=== PATIENT | male | born 1970 | race Caucasian/White ===

== ENCOUNTER 2023-10-08 20:14 | Inpatient (IN) | payer MEDICARE, MEDICAID, SELFPAY ==
--- NOTE | ~2023-10-08 | XR_ITS ---
EXAMINATION: XR chest 1V portable DATE: 10/09/2023 07:05 INDICATION: Cardiac arrest. TECHNIQUE: A single frontal view of the chest was obtained. COMPARISON: Chest single view 10/08/2023 FINDINGS: The patient is rotated to his left. There is a diffuse interstitial pattern in the lungs, c onsistent with mild pulmonary edema. No pleural effusion or pneumothorax. Cardiomegaly is noted. IMPRESSION: 1. Mild pulmonary edema. 2. Cardiomegaly. Reviewed, dictated and finalized at location E.
--- NOTE | ~2023-10-08 | CT_ITS ---
EXAMINATION: CT abdomen pelvis wo con DATE: 10/08/2023 21:37 INDICATION: Pelvic pain, scrotal pain history of abscess TECHNIQUE: Computed tomography (CT) of the abdomen and pelvis was performed without intravenous contr ast. Automated exposure control and iterative reconstruction technique were employed. The dose-length product was 2292.29 mGy-cm. COMPARISON: 10/20/2018. FINDINGS: Lower thorax: Patchy areas of groundglass opacity. Cardiomegaly. Aortic mitral and coronary artery ca lcifications. Liver: Nodular liver border. Biliary/Gallbladder: Gallbladder is absent. No bile duct dilation. Pancreas: Mild atrophy. Spleen: Normal. Adrenals:Indeterminate density cm right adrenal lesion. Kidneys: Bilateral renal atrophy. Bilateral simple cysts. GI tract: No small or large bowel dilation. Normal appendix. Mesentery/Peritoneum: Large volume ascites Retroperitoneum: No mass. Atherosclerotic abdominal aortic and/or arterial calcifications. Pelvis: Empty urinary bladder. Scrotal edema. Focal area of gas bubbles projecting over the posterior scrotal wall. Soft Tissues: Moderate body wall edema. Large bilateral inguinal lymph nodes. Bones: No acute osseous finding. IMPRESSION: Pulmonary opacities likely represent mild edema. Pneumonitis/atypical infection not excluded. Cirrhosis. Large volume ascites. Severe body wall edema, including scrotal edema. Focal area of gas within the posterior wall of the scrotum may represent gas trapped within skin fold s, soft tissue ulceration, or abscess. Correlate clinically. Evaluation for abscess is limited withou t contrast. Marked bilateral inguinal lymphadenopathy. Reviewed, dictated and finalized at location K. IMPRESSION: Pulmonary opacities likely represent mild edema. Pneumonitis/atypical infection not excluded. Cirrhosis. Large volume ascites. Severe body wall edema, including scrotal edema. Focal area of gas within the posterior wall of the scrotum may represent gas tr apped within skin folds, soft tissue ulceration, or abscess. Correlate clinical ly. Evaluation for abscess is limited without contrast. Marked bilateral inguinal lymphadenopathy.
--- NOTE | ~2023-10-08 | XR_ITS ---
EXAMINATION: XR chest 1V portable Exam Date/Time: 10/08/2023 20:37 CDT HISTORY: weakness Comparison: 04/24/2018. RESULT: Lines, tubes, and devices: None. Lungs and pleura: Moderate diffuse interstitial opacities. Cardiomediastinal silhouette: Stable. Other: No acute osseous or upper abdominal finding. IMPRESSION: Moderate interstitial edema. Reviewed, dictated and finalized at location K.
[2023-10-08 20:16] VITALS: BP 78/54; PULSE 86; RESP 16; TEMP 36.4; O2SAT 96
--- NOTE | 2023-10-08 20:26 | ECG_ITS ---
SEE SCANNED COPY FOR CONFIRMED REPORT MTDD
[2023-10-08] MEDS: SODIUM CHLORIDE 0.9% IV 1,000 ML 999 ML IV CONT (20:52)
[2023-10-08 20:58] LABS: Basophils Percent Auto 0.2 % (0.2-1.2); Eosinophils Percent Auto 0.3 % (0-4.4); Hematocrit 33.6 % (42.0-52.0); Hemoglobin 10.5 g/dL (14.0-18.0); Immature Granulocyte Absolute 0.05 K/mm3 (0.00-0.031); Immature Granulocyte Percent A 0.4 % (0-0.5); Immature Platelet Fraction Pct 7.5 % (0.9-11.2); Lymphocytes Absolute Auto 0.57 K/mm3 (0.9-3.2); Lymphocytes Percent Auto 4.6 % (18.3-44.2); Mean Corpuscular HGB Conc 31.3 g/dl (32-36); Mean Corpuscular Hemoglobin 29.7 pg (26-34); Mean Corpuscular Volume 95.2 fl (80-100); Monocytes Absolute Auto 0.8 K/mm3 (0.1-0.6); Monocytes Percent Auto 6.2 % (2.6-8.5); Neutrophils Absolute Auto 10.9 K/mm3 (1.3-6.7); Neutrophils Percent Auto 88.3 % (45.5-73.1); Platelet Count Result 91 k/mm3 (150-375); Red Blood Count 3.53 M/mm3 (4.6-6.20); Red Cell Distribution Width 15.9 % (11.5-14.5); White Blood Count 12.3 K/mm3 (4.5-10.0)
[2023-10-08 21:08] LABS: Lactic Acid Reflex 1.6 mmol/L (0.7-2.0)
[2023-10-08 21:09] LABS: Alanine Aminotransferase 14 U/L (6-50); Albumin Level 3.7 g/dL (3.5-5.1); Alkaline Phosphatase 93 U/L (38-126); Anion Gap 8 mmol/L (4-12); Aspartate Amino Transferase 25 U/L (17-59); Bilirubin,Total 1.2 mg/dL (0.2-1.3); Blood Urea Nitrogen 44 mg/dL (9-20); Calcium 8.5 mg/dL (8.4-10.2); Carbon Dioxide 29 mmol/L (22-30); Chloride 97 mmol/L (98-107); Estimated CRCL calculation 16 ml/min; Estimated Glomerular Filt Rate 8; Glucose 158 mg/dL (65-110); Potassium 4.3 mmol/L (3.4-5.0); Sodium 134 mmol/L (137-145)
[2023-10-08 21:10] LABS: Anisocytosis 1+; Ovalocytes 1+; Platelet Estimate Decreased (Adequate); Schistocytes None Seen
--- NOTE | 2023-10-08 21:25 | PC.NURSE ---
Patient requests being on a bed mcbride due to diarrhea. This RN educated him that he should not stay on a bed mcbride for extended periods of times due to possible pressure injury. Patient states he can pull himself off the mcbride when it gets uncomfortable. Call light within reach.
[2023-10-08 21:39] VITALS: BP 80/58; PULSE 80; RESP 18; O2SAT 98
[2023-10-08 21:45] LABS: Procalcitonin 0.7 ng/mL
[2023-10-08 23:10] VITALS: BP 90/66; PULSE 78; RESP 17; O2SAT 97
--- NOTE | 2023-10-08 23:24 | ED.GENADULT ---
HPI - General Adult General Chief complaint: Weakness Stated complaint: BLEEDING IN DEPENDS Time Seen by Provider: 10/08/23 20:31 History of Present Illness HPI narrative: Patient is a 53-year-old gentleman presents emergency department with chief complaint of infection of the scrotum patient reports he has history of diabetes had amputations of his lower extremities and also has history of congestive heart failure and wears a LifeVest patient reports he has been admitted at [facility] has had debridement before the scrotum after he has developed abscesses. The patient reports that he feels weaker than normal and reports that he normally goes to dialysis Sunday Related Data Allergies Allergy/AdvReac Type Severity Reaction Status Date / Time vancomycin Allergy Unknown Verified 04/24/18 13:37 Review of Systems Review of Systems: A 10 system review of systems was completed on the patient and is negative except for what is stated in the HPI. Nursing and ancillary documentation was reviewed. Exam Narrative: GENERAL: Well-appearing, well-nourished, and in no acute distress. HEAD: Normocephalic, atraumatic. EYES: PERRLA and EOMI. ENT: Nares clear, no rhinorrhea or epistaxis. Mucous membranes moist. NECK: Supple. CHEST: Clear to auscultation. No respiratory distress. HEART: Regular rate and rhythm. No murmur heard. Normal peripheral pulses. ABDOMEN: Soft, nontender, nondistended, normal active bowel sounds. : Scrotum is swollen there is area of ulceration in the posterior aspect of the scrotum that has bloody type drainage. No crepitance no necrotic tissue EXTREMITIES: Normal range of motion bilateral below-knee amputations. 4+ edema. SKIN: Warm, dry, no rash. NEURO: No focal deficits. Alert and oriented x3. PSYCH: Normal mood and affect. Course Vital Signs Vital signs: Vital Signs Temperature 36.4 C 10/08/23 20:16 Pulse Rate 86 10/08/23 20:16 Respiratory Rate 16 10/08/23 20:16 Blood Pressure 78/54 L 10/08/23 20:16 Pulse Oximetry 96 10/08/23 20:16 Oxygen Delivery Room Air 10/08/23 20:16 Temperature 36.4 C 10/08/23 20:16 Pulse Rate 78 10/08/23 23:10 Respiratory Rate 17 10/08/23 23:10 Blood Pressure 90/66 L 10/08/23 23:10 Pulse Oximetry 97 10/08/23 23:10 Oxygen Delivery Room Air 10/08/23 20:16 Medical Decision Making [facility] Narrative Medical decision making narrative: Differential diagnosis includes Odilon's gangrene, necrotizing fasciitis, abscess, cellulitis Laboratory studies were obtained showed a white count of 12.3 procalcitonin 0.[address] scan of the abdomen pelvis including the scrotum showed evidence of anasarca and also showed an area of possible abscess in the scrotum. There is no signs of necrotizing fasciitis The case was discussed with Urology who will consult on the patient the patient will be started on IV antibiotics in the emergency department and the case was discussed with the hospitalist for admission Vital Signs Vital Signs: Vital Signs Temperature 36.4 C 10/08/23 20:16 Pulse Rate 86 10/08/23 20:16 Respiratory Rate 16 10/08/23 20:16 Blood Pressure 78/54 L 10/08/23 20:16 Pulse Oximetry 96 10/08/23 20:16 Oxygen Delivery Room Air 10/08/23 20:16 Temperature 36.4 C 10/08/23 20:16 Pulse Rate 78 10/08/23 23:10 Respiratory Rate 17 10/08/23 23:10 Blood Pressure 90/66 L 10/08/23 23:10 Pulse Oximetry 97 10/08/23 23:10 Oxygen Delivery Room Air 10/08/23 20:16 Lab Data 10/08/23 20:50 10/08/23 20:50 Labs: Lab Results 10/08/23 Range/Units 20:50 WBC 12.3 H (4.5-10.0) K/mm3 RBC 3.53 L (4.6-6.20) M/mm3 Hgb 10.5 L (14.0-18.0) g/dL Hct 33.6 L (42.0-52.0) % MCV 95.2 (80-100) fl MCH 29.7 (26-34) pg MCHC 31.3 L (32-36) g/dl RDW 15.9 H (11.5-14.5) % Plt Count 91 L (150-375) k/mm3 MPV 12.0 H (7.4-10.4)
[2023-10-08] MEDS: CEFEPIME 2 GM/NS 50 ML 2 GM/50 ML BAG IVPB (23:41)
[2023-10-08] MEDS: metroNIDAZOLE 500 MG/ISO 100ML 500 MG/100 ML BAG 100 MG IVPB (23:58)
--- NOTE | 2023-10-08 23:58 | PM.IMHP ---
H&P: HPI History of Present Illness Date/Time: 10/08/23 23:58 Chief Complaint: Scrotal abscess Narrative: This is a 53-year-old male with past medical history significant for end-stage renal disease on hemodialysis, insulin-dependent diabetes mellitus, bilateral [id number] amputations, obesity. patient presents to the emergency room due to scrotal tenderness, discharge. patient with worsening diarrhea as well having several bowel movements a day of watery diarrhea, incontinent of stool. Denies any fevers, rigors, chills. Noted the finding in his scrotum 3 days ago noticed some brown discharge from it and decided to come to the emergency room. EXAMINATION:? XR chest 1V portable Exam Date/Time:? 10/08/2023 20:37 CDT HISTORY: weakness ? Comparison:? 04/24/2018. RESULT: Lines, tubes, and devices:? None. Lungs and pleura:? Moderate diffuse interstitial opacities. Cardiomediastinal silhouette:? Stable. Other:? No acute osseous or upper abdominal finding. ? IMPRESSION: Moderate interstitial edema. EXAMINATION: CT abdomen pelvis wo con DATE: 10/08/2023 21:37 INDICATION: Pelvic pain, scrotal pain history of abscess TECHNIQUE: Computed tomography (CT) of the abdomen and pelvis was performed without intravenous contrast. Automated exposure control and iterative reconstruction technique were employed. The dose-length product was 2292.29 mGy-cm. COMPARISON: 10/20/2018. FINDINGS: Lower thorax: Patchy areas of groundglass opacity. Cardiomegaly. Aortic mitral and coronary artery calcifications. Liver: Nodular liver border.? Biliary/Gallbladder: Gallbladder is absent. No bile duct dilation. Pancreas: Mild atrophy. Spleen: Normal. Adrenals:Indeterminate density cm right adrenal lesion. Kidneys: Bilateral renal atrophy. Bilateral simple cysts. GI tract: No small or large bowel dilation. Normal appendix. Mesentery/Peritoneum: Large volume ascites Retroperitoneum: No mass. Atherosclerotic abdominal aortic and/or arterial calcifications. Pelvis: Empty urinary bladder. Scrotal edema. Focal area of gas bubbles projecting over the posterior scrotal wall. Soft Tissues: Moderate body wall edema. Large bilateral inguinal lymph nodes. Bones:? No acute osseous finding. IMPRESSION: Pulmonary opacities likely represent mild edema. Pneumonitis/atypical infection not excluded. Cirrhosis. Large volume ascites. Severe body wall edema, including scrotal edema. Focal area of gas within the posterior wall of the scrotum may represent gas trapped within skin folds, soft tissue ulceration, or abscess. Correlate clinically. Evaluation for abscess is limited without contrast. Marked bilateral inguinal lymphadenopathy. Review of Systems Review of Systems: scrotal pain, discharge, for 3 days, Worsening diarrhea Constitutional: Constitutional: Denies chills, Denies fever(s), Denies malaise and Denies night sweats Eyes: Eyes: Denies change in vision ENT: Denies dysphagia and Denies odynophagia Cardiovascular: Cardiovascular: Denies chest pain, Denies radiating jaw, neck or arm pain, Denies palpitations and Denies dyspnea Respiratory: Respiratory: Denies chest congestion and Denies cough Gastrointestinal: Gastrointestinal: Reports fecal incontinence, Reports diarrhea, Denies nausea and Denies vomiting Genitourinary: Genitourinary: Denies dysuria Musculoskeletal: Musculoskeletal: Reports other ( Bilateral BKA) Integumentary/Breasts: Skin/Breast: Reports erythema, Reports skin swelling ( scrotal area) and Reports skin ulcer Neurologic: Denies focal weakness and Denies Sensory deficit (Neuro) Psychiatric: Psychiatric: Reports no additional psychiatric complaints and Reports as per HPI Endocrine: Endocrine: Denies cold intolerance, Denies fatigue, Denies flushing, Denies heat intolerance, Denies polyphagia, Denies polydipsia, Denies polyuria and Denies palpitations Hematologic/Lymphatic: Hematologic/Lymphatic: Reports
[2023-10-09] VITALS (13 sets, daily range): BP systolic 89–116; BP diastolic 59–79; PULSE 75–98; RESP 12–22; TEMP 36.2–36.8; O2SAT 96–100
--- NOTE | 2023-10-09 | ECHO_ITS ---
Patient Info Name: Codey Veloz Age: 53 years : 1970 Gender: Male Ht: 72 in Wt: 286 lbs BSA: 2.62 m2 HR: 98 bpm BP: 114 / 65 mmHg Heart Rhythm: Sinus Rhythm Technical Quality: Fair Exam Date: 10/09/2023 9:47 AM Exam Location: Echo Lab Patient Status: Inpatient Admit Date: 10/09/2023 Staff Ordering Physician: Nneka Cardona MD Hogshead Cooper: Hoa Isidro RDCS Attending Provider: Nneka Cardona MD Referring Physician: Dulce HAIDER; Exam Type: CA echo dop color flow w con Study Info Indications - post cardiac arrest Complete two-dimensional, color flow and Doppler transthoracic echocardiogram is performed with contrast to opacify the left ventricle and to improve the deliniation of the left ventricle endocardial borders. Contrast/Agitated Saline Contrast/Ag. Saline: Definity Amount: 2.00 ml Administered By: Hoa Isidro RDCS Existing IV Access: Yes IV Access Condition: patent with no signs of infiltration Summary 1. Left ventricular chamber dimension is normal. 2. Left ventricular systolic function is moderately reduced, estimated at 30-35%. 3. There is mildly increased left ventricular wall thickness. 4. Right ventricular chamber dimension is normal. 5. Right ventricular systolic function is reduced. 6. Left atrial chamber dimension is moderately enlarged. 7. Right atrial chamber dimension is mildly enlarged. 8. There is severe aortic valve calcification. 9. There is severe aortic valve stenosis with a peak velocity of 226.03 cm/s, mean gradient of 14 mmHg, and aortic valve area of 0.85 cm2. 10. The mitral valve annulus is severely calcified. 11. There is mild mitral valve regurgitation. 12. There is mild tricuspid valve regurgitation. 13. There is mild pulmonic regurgitation. Left Ventricle Left ventricular chamber dimension is normal. Left ventricular systolic function is moderately reduced, estimated at 30-35%. There is mildly increased left ventricular wall thickness. Right Ventricle Right ventricular chamber dimension is normal. Right ventricular systolic function is reduced. Left Atria Left atrial chamber dimension is moderately enlarged. Right Atria Right atrial chamber dimension is mildly enlarged. Atrial Septum Intact interatrial septum visualized by color flow imaging. Aortic Valve The aortic valve is trileaflet. There is severe aortic valve stenosis with a peak velocity of 226.03 cm/s, mean gradient of 14 mmHg, and aortic valve area of 0.85 cm2. There is no aortic valve regurgitation. There is severe aortic valve calcification. Pulmonic Valve The pulmonic valve is not well visualized. There is mild pulmonic regurgitation. Mitral Valve There is mild mitral valve regurgitation. The mitral valve annulus is severely calcified. Tricuspid Valve There is mild tricuspid valve regurgitation. Pericardium/Pleural There is no pericardial effusion. Inferior Vena Cava Normal inferior vena cava with >50% collapse upon inspiration consistent with normal right atrial pressure, 3 mmHg. Aorta The aortic root size at the sinus of Valsalva is normal. Left Ventricular Outflow Tract Name Value Normal LVOT 2D LVOT Diameter 2.07 cm LVOT Doppler
[2023-10-09] MEDS: LINEZOLID 600 MG/300 ML 600 MG/300 ML SOLN 300 MG IVPB ×2 (01:01→09:09)
--- NOTE | 2023-10-09 01:30 | PC.NURSE ---
This patient, Codey Veloz, was admitted to IMU Room 205-01. Patient/family oriented to hospital policies and general routines including ID bracelet, bed and alarms, visiting hours, pain management, procedures, bathroom and other care routines, personal items, smoking policy, room service/diet, and visiting hours. Information on how to activate the Rapid Response Team has been discussed. Patient/Family are encouraged to report perceived risks to care and to ask questions if they do not understand what they are told or what they should do.
[2023-10-09] MEDS: metroNIDAZOLE 500 MG/ISO 100ML 500 MG/100 ML BAG 100 MG IVPB ×2 (05:56→13:37)
--- NOTE | 2023-10-09 06:50 | PC.NURSE ---
Patient's firearms specialist alarmed with asystole. BETSEY Kwong entered room to check on patient. Found patient unresponsive and without a pulse. CPR started and code blue initiated. Patient moaning, no pulse palpated. Patient stated ouch and femoral pulse palpated. CPR stopped and patient drowsy but able to respond and answer questions. Dr. Cardona in the room to assess patient.
[2023-10-09 07:37] LABS: Lactic Acid Reflex 1.6 mmol/L (0.7-2.0)
[2023-10-09 07:57] LABS: Glucose Point of Care 125 mg/dl (65-105)
[2023-10-09 08:06] LABS: Troponin I 0.055 ng/mL (0.000-0.034)
--- NOTE | 2023-10-09 08:10 | PC.NURSE ---
This RN notified the day shift hospitalist, Dr. Mcbride about the patient coding at 0647 this morning.
[2023-10-09 08:11] LABS: Anion Gap 11 mmol/L (4-12); Blood Urea Nitrogen 48 mg/dL (9-20); Calcium 8.7 mg/dL (8.4-10.2); Carbon Dioxide 24 mmol/L (22-30); Chloride 99 mmol/L (98-107); Estimated CRCL calculation 15 ml/min; Estimated Glomerular Filt Rate 8; Glucose 143 mg/dL (65-110); Magnesium 2.2 mg/dL (1.6-2.3); Potassium 4.1 mmol/L (3.4-5.0); Sodium 134 mmol/L (137-145)
[2023-10-09] MEDS: ASPIRIN 81 MG CHEWABLE TABLET PO (09:09)
[2023-10-09] MEDS: CLOPIDOGREL BISULFATE 75 MG TABLET PO (09:09)
--- NOTE | 2023-10-09 09:37 | PC.NURSE ---
Pt. received from 205-. Sending RN Nguyen at bedside and answered all questions.
--- NOTE | 2023-10-09 09:37 | PC.NURSE ---
This patient, Codey Veloz, was transferred to [ICU room 7] on 10/09/23 at 0938. Personal belongings sent with patient. Report given to [BETSEY Gabriel ]. Appropriate documentation sent with patient.
--- NOTE | 2023-10-09 09:56 | WPDURCON ---
Urology Consult Note HPI Date Seen: 10/09/23 Requesting Physician: Nneka Cardona MD Primary Care Provider: aLureano Snyder, Consult Narrative Narrative: Codey Veloz is a 53 year old male [facility] Family History Family History (Updated 10/09/23 @ 06:05 by Keke Alvarado RN) Other Unknown family medical history Social History Social History Smoking status: Former smoker Tobacco type: cigarettes Alcohol intake: never Substance use: never Substance use type: does not use Do You Feel Safe in your Home?: Yes Lack of Transportation: No Lack of Food: Never True Current Housing: Decline to Answer Concerned About Future Housing: Decline to Answer Difficulty Paying Gas/Electric Bills: Decline to Answer Difficulty Paying for Meds: Decline to Answer Currently Unemployed: Decline to Answer Education: Decline to Answer Difficulty w/ Childcare or Family Care: Decline to Answer Spiritual care concerns: No Meds Home Medications and Allergies Home Medications Medication Instructions Recorded Confirmed Type aspirin 81 mg chewable tablet 81 mg PO DAILY 10/09/23 10/09/23 History bisacodyl 10 mg rectal suppository 10 mg RECTAL DAILY PRN Constipation 10/09/23 10/09/23 History clopidogrel 75 mg tablet 75 mg PO DAILY 10/09/23 10/09/23 History diphenoxylate-atropine 2.5 1 tablet PO Q6H PRN Diarrhea 10/09/23 10/09/23 History mg-0.025 mg tablet hydrocodone 10 mg-acetaminophen 1 tablet PO Q8H PRN Pain 10/09/23 10/09/23 History 325 mg tablet insulin lispro 100 unit/mL 1 sliding scale dose subcut AC 10/09/23 10/09/23 History subcutaneous pen lidocaine-prilocaine 2.5 %-2.5 % 1 applic topical MOWEFR 10/09/23 10/09/23 History topical cream loperamide 2 mg capsule 2 mg PO PRN PRN Diarrhea 10/09/23 10/09/23 History magnesium citrate (Citroma oral 300 ml PO DAILY PRN Constipation 10/09/23 10/09/23 History solution) magnesium hydroxide 400 mg/5 mL 30 ml PO HS PRN Constipation 10/09/23 10/09/23 History oral suspension (Milk of Magnesia) midodrine 5 mg tablet 15 mg PO TID Hypotension 10/09/23 10/09/23 History sodium phosphates 19 gram-7 118 ml RECTAL DIRECTED PRN 10/09/23 10/09/23 History gram/118 mL enema (Fleet Enema) Constipation trazodone 50 mg tablet 50 mg PO HS 10/09/23 10/09/23 History Allergies Allergy/AdvReac Type Severity Reaction Status Date / Time vancomycin Allergy Unknown Itching Verified 10/09/23 01:47 codeine Allergy Unknown Verified 10/09/23 01:59 Vital Signs Vital Signs - 24 hr 10/08/23 20:16 10/08/23 21:39 10/08/23 23:10 Temperature 97.6 F Pulse Rate 86 80 78 Respiratory Rate 16 18 17 Blood Pressure 78/54 L 80/58 L 90/66 L Pulse Oximetry 96 98 97 Oxygen Delivery Room Air Oxygen Flow Rate Fraction of Inspired Oxygen 10/09/23 01:52 10/09/23 01:45 10/09/23 02:00 Temperature 97.6 F Pulse Rate 81 78 Respiratory Rate 17 Blood Pressure 91/65 L Pulse Oximetry 97 Oxygen Delivery Room Air Oxygen Flow Rate Fraction of Inspired Oxygen 10/09/23 05:15 10/09/23 04:00 10/09/23 06:00 Temperature 97.2 F L Pulse Rate 82 78 79 Respiratory Rate 17 Blood Pressure 91/60 L Pulse Oximetry 97 Oxygen Delivery Oxygen Flow Rate Fraction of Inspired Oxygen 10/09/23 04:00 10/09/23 06:45 10/09/23 07:28 Temperature 97.7 F Pulse Rate 98 Respiratory Rate 17 Blood Pressure 114/65 Pulse Oximetry 99 100 Oxygen Delivery Room Air Nasal Cannula Oxygen Flow Rate 2 Fraction of Inspired Oxygen 28 10/09/23 07:58 10/09/23 08:00 Temperature 98.2 F Pulse Rate 84 Respiratory Rate 16 Blood Pressure 93/59 L Pulse Oximetry 100 Oxygen Delivery Room Air Oxygen Flow Rate Fraction of Inspired Oxygen Results Labs 10/08/23 20:50 10/09/23 07:13 Labs: Short CBC 10/08/23 Range/Units
[2023-10-09] MEDS: PSYLLIUM POWDER PACKET 1 PACKET PO (10:00)
[2023-10-09] MEDS: PERFLUTREN LIPID MICROSPHERES 1.5 ML VIAL DILUTED TO 10 ML TOTAL VOLUME IV PUSH (10:10)
[2023-10-09] MEDS: MIDODRINE HCL 2.5 MG TABLET 15 MG PO ×3 (10:25→17:35)
--- NOTE | 2023-10-09 10:43 | WPDCNINT ---
Assessment and Plan Assessment and plan (1) Coronary artery disease: Code(s): I25.10 - Atherosclerotic heart disease of [place] coronary artery without angina pectoris Status: Acute Assessment and Plan: Patient has ischemic cardiomyopathy with EF 30%. He has multivessel coronary disease status post stenting of his RCA. He also has severe aortic stenosis and is being evaluated for TAVR Continue aspirin and Plavix at this time Patient will be transferred to [facility] where he receives his cardiology care for further evaluation management along with evaluation for AICD and pacemaker placement (2) Severe aortic stenosis: Code(s): I35.0 - Nonrheumatic aortic (valve) stenosis Status: Acute Assessment and Plan: See above (3) Sinus arrest: Code(s): I45.5 - Other specified heart block Status: Acute Assessment and Plan: Patient had a 7 seconds sinus pause agree CPR. His electrolytes were acceptable and normal range and he is not on any beta-rene or calcium channel rene Patient was being evaluated for AICD placement at his last hospitalization and was discharged on LifeVest. He appears that he needs both pacemaker and AICD at this time. 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 Correlate clinically. Evaluation for abscess is limited without contrast. Exam as above Urology has been consulted and will see the patient Patient is going to be transferred to [facility] from Cardiology standpoint Continue Zyvox, cefepime and Flagyl (6) Anasarca: Code(s): R60.1 - Generalized edema Status: Acute Assessment and Plan: Patient is overall volume overloaded secondary to congestive heart failure and end-stage renal disease He will benefit from paracentesis since it is hard to remove fluid with dialysis considering his chronically low blood pressure but since patient is going to be transferred I will defer paracentesis to the accepting hospital (7) ESRD on dialysis: Code(s): N18.6 - End stage renal disease; Z99.2 - Dependence on renal dialysis Status: Acute Assessment and Plan: Nephrology has been consulted for dialysis Electrolytes are in acceptable range (8) Heart failure with reduced ejection fraction: Code(s): I50.20 - Unspecified systolic (congestive) heart failure Status: Acute Assessment and Plan: See above (9) Thrombocytopenia: Code(s): D69.6 - Thrombocytopenia, unspecified Status: Acute Assessment and Plan: Presented with is platelet count 91. Baseline unknown. Could be secondary to sepsis and cirrhosis Monitor at this time Plan DVT prophylaxis -Lovenox SUP - NA Nutrition -diabetic diet Code Status - Full Code Case discussed with Cardiology Dr. Berry and Urology. Dr. Berry recommends transfer to [facility] for AICD and permanent pacemaker placement. She spoke to Dr. Serrano who is patient's rn staff and will accept the patient as a cruise consultant to [facility]. I have spoken to transfer line and Dr. Ortega who is the manager massage department . He will accept patient and patient be transferred once bed is will. Patient is aware of transfer process and is agreeable to transfer. He verbalized understandings of risks and benefits of transferring to another facility. Total Critical
--- NOTE | 2023-10-09 10:45 | P.CONNP_ITS ---
Assessment and Plan Assessment and plan (1) End stage renal disease: Code(s): N18.6 - End stage renal disease Status: Chronic Assessment and Plan: * HD tomorrow * continue Sun/Sun/Sunday schedule while hospitalized * follow electrolytes, volume status, and clearance * consider extrea session of DUF/HD during hospitalization due to volume overload... (2) Sinus arrest: Code(s): I45.5 - Other specified heart block Status: Acute Assessment and Plan: * noted 7 second sinus pause by telmetry * s/p CPR with ROSC quite rapidly * likely needs pacemaker placement * Cardiology consulted (3) Ischemic cardiomyopathy: Code(s): I25.5 - Ischemic cardiomyopathy Status: Chronic Assessment and Plan: * as noted by previous evaluation at [facility] * noted EF of 30% * known multivessel coronary disease status post stenting of his RCA * this is further complicated by his severe aortic stenosis (being evaluated for TAVR) * was being considered for AICD placement * LifeVest in place * Cardiology consulted (4) Cellulitis of scrotum: Code(s): N49.2 - Inflammatory disorders of scrotum Status: Acute Assessment and Plan: * imaging noted on admission * 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 Thank you for allowing me to participate in the care of this patient. History of Present Illness Reason for Consult Consult date: 10/09/23 Reason for consult: end stage renal disease Chief Complaint Chief complaint: Scrotal Abscess/Cellulitis History of Present Illness Narrative: The patient is a 53-year-old Caucasina male with past medical history as outlined below who presented to the [facility] emergency room due to scrotal tenderness and discharge. He reports the symptoms have been going on for last few days if not longer and has been associated with issues/ problems with diarrhea. He reports he was recently hospitalized at [facility] for cardiac issues but no reported urological issues or symptoms that he has been experiencing for the last few days. Given these symptoms, he presented to the ER for further assessment. Workup and evaluation in the emergency room demonstrated the patient to be hemodynamically stable and no acute distress. Routine blood test demonstrated labs consistent with his known history of end-stage renal disease. Given the history as mentioned, he underwent a CT scan of the chest/abdomen/pelvis which demonstrated pulmonary opacities likely representing edema, liver cirrhosis, large volume ascites, severe body wall edema including scrotal edema, focal areas of gas within the posterior wall of the scrotum which may represent gas trapped within skin. , soft tissue ulceration, or abscess and bilateral inguinal lymphadenopathy. Given these findings, after appropriate cultures were obtained, he was start
--- NOTE | 2023-10-09 10:45 | PM.CNNEP ---
Assessment and Plan Assessment and plan (1) End stage renal disease: Code(s): N18.6 - End stage renal disease Status: Chronic Assessment and Plan: HD tomorrow continue Sun/Sun/Sunday schedule while hospitalized follow electrolytes, volume status, and clearance consider extrea session of DUF/HD during hospitalization due to volume overload... (2) Sinus arrest: Code(s): I45.5 - Other specified heart block Status: Acute Assessment and Plan: noted 7 second sinus pause by telmetry s/p CPR with ROSC quite rapidly likely needs pacemaker placement Cardiology consulted (3) Ischemic cardiomyopathy: Code(s): I25.5 - Ischemic cardiomyopathy Status: Chronic Assessment and Plan: as noted by previous evaluation at [facility] noted EF of 30% known multivessel coronary disease status post stenting of his RCA this is further complicated by his severe aortic stenosis (being evaluated for TAVR) was being considered for AICD placement LifeVest in place Cardiology consulted (4) Cellulitis of scrotum: Code(s): N49.2 - Inflammatory disorders of scrotum Status: Acute Assessment and Plan: imaging noted on admission 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[facility] many years ago Urology consulted on IV antibiotics (5) Anasarca: Code(s): R60.1 - Generalized edema Status: Acute Assessment and Plan: as noted by physical exam and imaging studies consider extra dialysis/ultrafiltration for further fluid removal consider paracentesis follow volume status (6) Insulin dependent diabetes mellitus: Status: Chronic Assessment and Plan: follow accu-cheks glycemic control per hospitalist/nurse practitioner home assessments I will continue follow the patient with you while he remains hospitalized and make further recommendations as deemed necessary. Thank you for allowing me to participate in the care of this patient. History of Present Illness Reason for Consult Consult date: 10/09/23 Reason for consult: end stage renal disease Chief Complaint Chief complaint: Scrotal Abscess/Cellulitis History of Present Illness Narrative: The patient is a 53-year-old Caucasina male with past medical history as outlined below who presented to the [facility] emergency room due to scrotal tenderness and discharge. He reports the symptoms have been going on for last few days if not longer and has been associated with issues/ problems with diarrhea. He reports he was recently hospitalized at [facility] for cardiac issues but no reported urological issues or symptoms that he has been experiencing for the last few days. Given these symptoms, he presented to the ER for further assessment. Workup and evaluation in the emergency room demonstrated the patient to be hemodynamically stable and no acute distress. Routine blood test demonstrated labs consistent with his known history of end-stage renal disease. Given the history as mentioned, he underwent a CT scan of the chest/abdomen/pelvis which demonstrated pulmonary opacities likely representing edema, liver cirrhosis, large volume ascites, severe body wall edema including scrotal edema, focal areas of gas within the posterior wall of the scrotum which may represent gas trapped within skin. , soft tissue ulceration, or abscess and bilateral inguinal lymphadenopathy. Given these findings, after appropriate cultures were obtained, he was started on IV antibiotics with Urology consultation and was subsequently admitted to the hospital for further evaluation and therapy Upon further discussion with the patient, he reports a history of Odilon's gangrene many years ago that was treated [facility]. At that time, he require surgical intervention and skin grafting. During his recent hospitalization [facility] he al
--- NOTE | 2023-10-09 11:00 | PM.IMPN ---
Progress Note: A&P Assessment and Plan (1) Cellulitis of scrotum: Code(s): N49.2 - Inflammatory disorders of scrotum Status: Acute (2) ESRD on dialysis: Code(s): N18.6 - End stage renal disease; Z99.2 - Dependence on renal dialysis Status: Acute (3) Below-knee amputation of both lower extremities: Code(s): S88.111A - Complete traumatic amputation at level between knee and ankle, right lower leg, initial encounter; S88.112A - Complete traumatic amputation at level between knee and ankle, left lower leg, initial encounter Status: Acute (4) Chronic diarrhea: Code(s): K52.9 - Noninfective gastroenteritis and colitis, unspecified Status: Acute (5) Insulin dependent diabetes mellitus: Status: Acute (6) Sinus arrest: Code(s): I45.5 - Other specified heart block Status: Acute (7) Severe aortic stenosis: Code(s): I35.0 - Nonrheumatic aortic (valve) stenosis Status: Acute (8) Heart failure with reduced ejection fraction: Code(s): I50.20 - Unspecified systolic (congestive) heart failure Status: Acute (9) Thrombocytopenia: Code(s): D69.6 - Thrombocytopenia, unspecified Status: Acute (10) Coronary artery disease: Code(s): I25.10 - Atherosclerotic heart disease of grayling coronary artery without angina pectoris Status: Acute Plan This is a 53-year-old gentleman who presents to the ER with scrotal swelling and pain. He has underlying history of diabetes and amputation of his lower extremities history of congestive heart failure has systolic dysfunction ejection fraction 30-35% also has severe aortic stenosis and was planned to have TAVR in the near future. Hemodialysis Sunday. On ED evaluation he was hypotensive at 70s systolic white cell count 12.3 procalcitonin 0[address] abdomen pelvis including scrotum revealed evidence of anasarca and showed an area of possible abscess in scrotum no signs of necrotizing fascitis. Patient was started on broad-spectrum antibiotics with linezolid cefepime and Flagyl. 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 Patient alert and oriented Will transfer to ICU for close monitoring. Electrolytes were okay Cardiology has been consulted Chronic systolic congestive Heart failure uses a LifeVest EF of 30-35%. Anasarca noted on CT may need paracentesis Severe aortic stenosis plan for TAVR in your future End-stage renal disease on hemodialysis Sunday nephrology consultation Scrotal cellulitis/abscess with CT evidence of gas in the scrotal area on broad-spectrum antibiotics. Urology consulted Insulin-dependent diabetes mellitus Chronic hypotension on midodrine Coronary artery disease status post recent PCI on aspirin and Plavix Thrombocytopenia chronic DVT prophylaxis Lovenox Code status full code Subjective Date/time seen: 10/09/23 11:00 Interval history: Patient had asystole and code blue was called earlier today. Rosc obtained within a minute no meds were given. Had few chest compressions done. Back to sinus rhythm alert and oriented discussed with ICU cardiology has been consulted. He is planned for TAVR at [facility] for his severe aortic stenosis Review of Systems Review of Systems: All systems reviewed & are unremarkable except as noted in HPI and below (HPI) Exam Narrative: GENERAL: Well-appearing, well-nourished, and in no acute distress. HEAD: Normocephalic, atraumatic. EYES: PERRLA and EOMI. ENT: Nares clear, no rhinorrhea or epistaxis.? Mucous membranes moist. NECK: Supple. CHEST: Clear to auscultation.? No respiratory distress. HEART: Regular rate and rhythm.? No murmur heard.? Normal peripheral pulses. ABDOMEN: Soft, nontender, nondistended, normal active bowel sounds. :? Scrotum is swollen there is area of ulceration in the posterio
--- NOTE | 2023-10-09 11:11 | IVDEFINITY ---
Prior to administration of IV Definity the patient was educated on the risks and benefits of the imaging enhancing agent including potential adverse side effects. The patient verbalized understanding. Allergies were verified. No exclusion criteria were identified and at least one of the following inclusion criteria were met: 1) physician request, 2) patient technically difficult to image (per the [place] [employer] guidelines of two or more segments not discernable within the apical view), or 3) questionable left ventricular function. ?
--- NOTE | 2023-10-09 11:43 | PM.CNCAR ---
Assessment and Plan Assessment and plan (1) Sinus arrest: Code(s): I45.5 - Other specified heart block Status: Acute Assessment and Plan: Telemetry showed a 7.8 second pause. Given this, it appears that he needs a pacemaker. Given reduced LVEF, ICD recommended, which is not available at this institution. Case was discussed with patient's primary bi tri operator, Dr. Cheikh Rowe, who requests that the patient be transferred to [facility]. Avoid AV ramya blocking agents for now. (2) Severe aortic stenosis: Code(s): I35.0 - Nonrheumatic aortic (valve) stenosis Status: Acute Assessment and Plan: He is undergoing outpatient TAVR evaluation. (3) Coronary artery disease: Code(s): I25.10 - Atherosclerotic heart disease of ramona coronary artery without angina pectoris Status: Acute Assessment and Plan: S/p recent PCI. Continue ASA and Plavix (4) Heart failure with reduced ejection fraction: Code(s): I50.20 - Unspecified systolic (congestive) heart failure Status: Acute Assessment and Plan: Has not been able to tolerate GDMT due to hypotension. Volume removal as per dialysis. (5) Insulin dependent diabetes mellitus: Status: Acute Assessment and Plan: Management as per primary team. (6) ESRD on dialysis: Code(s): N18.6 - End stage renal disease; Z99.2 - Dependence on renal dialysis Status: Acute Assessment and Plan: Nephrology consulted for hemodialysis. Plan Recommendations and plan discussed with Harness Inspector, Dr. Bucio. History of Present Illness History of Present Illness Consult date/time: 10/09/23 11:43 Requesting physician: Gianni Bucio MD Consult reason: Other (Sinus arrest / Asystole ) Reason For Visit: Scrotal Abscess/Cellulitis Narrative: Reason for consult: Sinus arrest / asystole This is a 53 year old male with the following history: 1. Severe aortic stenosis (low flow severe ) 2. Multivessel coronary artery disease involving the mid LAD, mid to distal OM2, and mid RCA as per cardiac catheterization 08/22/2023. S/p PCI to the mid RCA with 4.0mm x 28mm ONUR. The patient was unstable in the procedure to perform further coronary interventions. 3. Heart failure with reduced ejection fraction with LVEF 30-35% per TTE 08/17/2023. Unable to tolerate GDMT due to hypotension. Wearing Life Vest. 4. ESRD on HD 5. Bilateral BKA 6. Cirrhosis 7. Type 2 diabetes mellitus Patient's primary bi tri operator is Dr. Cheikh Rowe, last office visit was 09/25/2023. Patient presented to [facility] on 10/07 for concern for scrotal infection. No chest pain, shortness of breath, orthopnea. Early this morning, telemetry alarmed for asystole. Patient was unresponsive and no pulse, therefore, CPR was immediately started. Review of telemetry shows a sinus pause of 7.8 seconds. Once patient returned to sinus rhythm, he was alert and oriented x 3. Review of Systems Review of Systems: All systems reviewed & are unremarkable except as noted in HPI and below (HPI) [facility] Family History Family History Other Unknown family medical history Social History Social History Smoking status: Former smoker Tobacco type: cigarettes Alcohol intake: never Substance use: never Substance use type: does not use Do You Feel Safe in your Home?: Yes Lack of Transportation: No Lack of Food: Never True Current Housing: Decline to Answer Concerned About Future Housing: Decline to Answer Difficulty Paying Gas/Electric Bills: Decline to Answer Difficulty Paying for Meds: Decline to Answer Currently Unemployed: Decline to Answer Education: Decline to Answer Difficulty w/ Childcare or Family Care: Decline to Answer Spiritual care concerns: No Meds Home Medications and Allergies Home Medications Medication Instructions Recorded Con
[2023-10-09 12:24] LABS: Hepatitis B Surface Antigen Negative (Negative)
--- NOTE | 2023-10-09 12:27 | WPDURCON ---
Assessment and Plan Assessment and plan (1) Cellulitis of scrotum: Code(s): N49.2 - Inflammatory disorders of scrotum Status: Acute Assessment and Plan: CT scan revealed this question of a small pocket of air but this may have been in the fold of his scrotum. No sign of Odilon's gangrene clinically at this time. Unable to express or palpate any areas of fluctuance. Patient will be transferred to [facility] and will require a Urology consultation at that facility for monitoring. Have recommended persistence of IV antibiotics, scrotal elevation, ice pack to the scrotal area. Urology Consult Note HPI Date Seen: 10/09/23 Time Seen: 12:27 Requesting Physician: Nneka Cardona MD Primary Care Provider: Laureano Snyder, Consult Narrative Reason for consult: Scrotal tenderness and swelling Narrative: oCdey Veloz is a 53 year old male who with multiple comorbidities who was admitted with some scrotal tenderness. He felt that he had a little drainage from his inferior scrotal aspect few days ago. Patient has multiple medical issues and has a history of scrotal abscesses requiring drainage is an grafting. This was done pre COVID. It was performed at [facility]. Patient denies any fevers. Patient is in the process of being transferred to [facility] for slight episode of asystole requiring pacemaker placement. Review of Systems Review of Systems: All systems reviewed & are unremarkable except as noted in HPI and below PMFSH Past Medical History Medical History Below-knee amputation of both lower extremities Coronary artery disease ESRD on dialysis Heart failure with reduced ejection fraction Insulin dependent diabetes mellitus Severe aortic stenosis Family History Family History Other Unknown family medical history Social History Social History Smoking status: Former smoker Tobacco type: cigarettes Alcohol intake: never Substance use: never Substance use type: does not use Do You Feel Safe in your Home?: Yes Lack of Transportation: No Lack of Food: Never True Current Housing: Decline to Answer Concerned About Future Housing: Decline to Answer Difficulty Paying Gas/Electric Bills: Decline to Answer Difficulty Paying for Meds: Decline to Answer Currently Unemployed: Decline to Answer Education: Decline to Answer Difficulty w/ Childcare or Family Care: Decline to Answer Spiritual care concerns: No Meds Home Medications and Allergies Home Medications Medication Instructions Recorded Confirmed Type aspirin 81 mg chewable tablet 81 mg PO DAILY 10/09/23 10/09/23 History bisacodyl 10 mg rectal suppository 10 mg RECTAL DAILY PRN Constipation 10/09/23 10/09/23 History clopidogrel 75 mg tablet 75 mg PO DAILY 10/09/23 10/09/23 History diphenoxylate-atropine 2.5 1 tablet PO Q6H PRN Diarrhea 10/09/23 10/09/23 History mg-0.025 mg tablet hydrocodone 10 mg-acetaminophen 1 tablet PO Q8H PRN Pain 10/09/23 10/09/23 History 325 mg tablet insulin lispro 100 unit/mL 1 sliding scale dose subcut AC 10/09/23 10/09/23 History subcutaneous pen lidocaine-prilocaine 2.5 %-2.5 % 1 applic topical MOWEFR 10/09/23 10/09/23 History topical cream loperamide 2 mg capsule 2 mg PO PRN PRN Diarrhea 10/09/23 10/09/23 History magnesium citrate (Citroma oral 300 ml PO DAILY PRN Constipation 10/09/23 10/09/23 History solution) magnesium hydroxide 400 mg/5 mL 30 ml PO HS PRN Constipation 10/09/23 10/09/23 History oral suspension (Milk of Magnesia) midodrine 5 mg tablet 15 mg PO TID Hypotension 10/09/23 10/09/23 History sodium phosphates 19 gram-7 118 ml RECTAL DIRECTED PRN 10/09/23 10/09/23 History gram/118 mL enema (Fleet Enema) Constipation trazodone 50 mg
[2023-10-09 12:31] LABS: Glucose Point of Care 125 mg/dl (65-105)
[2023-10-09 12:43] LABS: Hepatitis B Surface Anti Res Positive
[2023-10-09] MEDS: CEFEPIME 1 GM/NS 50 ML 1 GM/50 ML BAG IVPB (17:36)
[2023-10-09 18:22] LABS: Glucose Point of Care 161 mg/dl (65-105)
--- NOTE | 2023-10-12 06:14 | P.PNCROSS_ITS ---
Event Note Event Note Event Note: Code manjit was called to patient's room after having a period of asystole. At ar rival patient was back to sinus rhythm.
--- NOTE | 2023-10-12 06:14 | PM.EVENT ---
Event Note Event Note Event Note: Code manjit was called to patient's room after having a period of asystole. At arrival patient was back to sinus rhythm.
--- NOTE | 2023-10-12 06:15 | PDCODEBLUE ---
[facility] Note Code Blue Note Time Arrived at [facility]: 6:50 am Initial Rhythm on Arrival: sinus rhythm Airway Management: own Cardiac Rhythm Post Code: Patient was breathing on his own. [facility] Cisneros Summary: Diana manjit was called due to brief period of asystole, chest compressions were initiated, patient achieved ROSC spontaneously.
--- NOTE | 2023-10-19 17:37 | PM.TDS ---
Transfer Discharge Sum: Prov Provider Date of admission: 10/09/23 00:46 Primary care physician: Laureano Snyder, Admitting clinician: Nneka Cardona MD Consults: 10/09/23 Consult to Physician Routine Comment: Consulting Provider: Gianni Bucio Reason for consultation: icu transfer Has provider been notified: Yes Consult to Physician Routine Comment: called office with consult information Consulting Provider: Leola Hernández score caller/MD group to consult: Nephrology Reason for consultation: ESRD patient on HD Sunday Has provider been notified: Yes Consult to Physician Routine Comment: left message for shahid Hale regarding consult Consulting Provider: Trang Berry score caller/MD group to consult: Cardiology Reason for consultation: cardiac arrest Has provider been notified: Yes 10/09/23 00:06 Consult to Physician Routine Comment: Consulting Provider: Kimo Copeland Reason for consultation: Scrotal abscess/cellulitis Has provider been notified: Yes DS: Admitting Diagnosis Discharge Date 10/09/23 Admitting Diagnosis Sepsis DS: Discharge Diagnosis Discharge Diagnosis (1) Cellulitis of scrotum: Code(s): N49.2 - Inflammatory disorders of scrotum Status: Acute (2) ESRD on dialysis: Code(s): N18.6 - End stage renal disease; Z99.2 - Dependence on renal dialysis Status: Acute (3) Below-knee amputation of both lower extremities: Code(s): S88.111A - Complete traumatic amputation at level between knee and ankle, right lower leg, initial encounter; S88.112A - Complete traumatic amputation at level between knee and ankle, left lower leg, initial encounter Status: Acute (4) Chronic diarrhea: Code(s): K52.9 - Noninfective gastroenteritis and colitis, unspecified Status: Acute (5) Insulin dependent diabetes mellitus: Status: Acute (6) Sinus arrest: Code(s): I45.5 - Other specified heart block Status: Acute (7) Severe aortic stenosis: Code(s): I35.0 - Nonrheumatic aortic (valve) stenosis Status: Acute (8) Heart failure with reduced ejection fraction: Code(s): I50.20 - Unspecified systolic (congestive) heart failure Status: Acute (9) Thrombocytopenia: Code(s): D69.6 - Thrombocytopenia, unspecified Status: Acute (10) Coronary artery disease: Code(s): I25.10 - Atherosclerotic heart disease of alutiiq coronary artery without angina pectoris Status: Acute Transfer Discharge Sum: Med Medications Active and Home Medications: Home Medications aspirin 81 mg chewable tablet 81 mg PO DAILY 10/09/23 [History Confirmed 10/09/23] bisacodyl 10 mg rectal suppository 10 mg RECTAL DAILY PRN Constipation 10/09/23 [History Confirmed 10/09/23] clopidogrel 75 mg tablet 75 mg PO DAILY 10/09/23 [History Confirmed 10/09/23] diphenoxylate-atropine 2.5 mg-0.025 mg tablet 1 tablet PO Q6H PRN Diarrhea 10/09/23 [History Confirmed 10/09/23] hydrocodone 10 mg-acetaminophen 325 mg tablet 1 tablet PO Q8H PRN Pain 10/09/23 [History Confirmed 10/09/23] insulin lispro 100 unit/mL subcutaneous pen 1 sliding scale dose subcut AC 10/09/23 [History Confirmed 10/09/23] lidocaine-prilocaine 2.5 %-2.5 % topical cream 1 applic topical MOWEFR 10/09/23 [History Confirmed 10/09/23] loperamide 2 mg capsule 2 mg PO PRN PRN Diarrhea 10/09/23 [History Confirmed 10/09/23] magnesium citrate (Citroma oral solution) 300 ml PO DAILY PRN Constipation 10/09/23 [History Confirmed 10/09/23] magnesium hydroxide 400 mg/5 mL oral suspension (Milk of Magnesia) 30 ml PO HS PRN Constipation 10/09/23 [History Confirmed 10/09/23] midodrine 5 mg tablet 15 mg PO TID Hypotension 10/09/23 [History Confirmed 10/09/23] sodium phosphates 19 gram-7 gram/118 mL enema (Fleet Enema) 118 ml RECTAL DIRECTED PRN Constipation 10/09/23 [History Confirmed 10/09/23] trazodone 50 mg tablet 50 mg PO HS 10/09/23 [History Confirmed
== END 2023-10-09 18:33 | disposition short-term general hospital (02) | DRG 727 ==
LOC: ANHED 23:28 → ANHIMU 10-09 00:50 → ANHICU 10-09 09:28
PROVIDERS: Internal Medicine Nephrology; Admitting Provider Internal Medicine; Emergency Provider Emergency Medicine; PCP Family Medicine; Visit Provider Internal Medicine
DX: N49.2 Inflammatory disorders of scrotum (principal); I46.9 Cardiac arrest, cause unspecified; N18.6 End stage renal disease; I50.22 Chronic systolic (congestive) heart failure; I45.5 Other specified heart block; Z99.2 Dependence on renal dialysis; I35.0 Nonrheumatic aortic (valve) stenosis; I25.10 Atherosclerotic heart disease of native coronary artery without angina pectoris; I25.5 Ischemic cardiomyopathy; I95.89 Other hypotension; D69.6 Thrombocytopenia, unspecified; E11.22 Type 2 diabetes mellitus with diabetic chronic kidney disease; K52.9 Noninfective gastroenteritis and colitis, unspecified; R60.1 Generalized edema; Z89.512 Acquired absence of left leg below knee; Z89.511 Acquired absence of right leg below knee; Z87.891 Personal history of nicotine dependence; Z79.82 Long term (current) use of aspirin; Z79.02 Long term (current) use of antithrombotics/antiplatelets; Z95.5 Presence of coronary angioplasty implant and graft
CPT/HCPCS: 36415; 71045; 74176; 80048; 80053; 82948; 83605; 83735; 84145; 84484; 85025; 85055; 86706; 87040; 87340; 93005; 96361; 96365; 96367; 99285; A9270; C8929; J0692; J1836; J2020; J7030; Q9957